=== PATIENT | male | born 1970 | race Caucasian/White ===

== ENCOUNTER 2020-10-22 11:46 | Emergency (ER) | payer OTHER ==
[2020-10-22] MEDS ORDERED: KETOROLAC 60 MG/2 ML INJ IM ONE (14:34)
[2020-10-22] MEDS ORDERED: dexAMETHasone 4 MG/ML VIAL IM STA (14:34)
--- NOTE | 2020-10-22 14:39 | Emergency Department Report ---
ED General Adult HPI - General Chief complaint: Back Pain/Injury Stated complaint: BACK PAIN,RT SHOULDER,FOOT PAIN Time Seen by Provider: 10/22/20 13:03 Source: patient, comedian (Brenda) Mode of arrival: Ambulatory Limitations: Language Barrier - History of Present Illness Initial comments: 50-year-old male patient presents with complaints of continued right- sided neck pain since a work-related injury occurring on 09/04/2020. He states he is currently following with orthopedics with the diclofenac and meloxicam they have been taking is not helping with his pain. He denies any new injuries, fever/chills/sweats, or difficulty moving his neck. He rates his current pain is 8/10 in severity. - Related Data Previous Rx's Medication Instructions Recorded Last Taken Type Acetaminophen/Codeine [Tylenol 1 tab PO Q8H PRN #6 tab 10/22/20 Unknown Rx /Codeine # 3 tab] Prednisone [predniSONE 10 mg 10 mg PO .TAPER #1 tab.ds.pk 10/22/20 Unknown Rx (6-Day Pack, 21 Tabs)] methocarbamoL [Methocarbamol] 750 - 1,500 mg PO TID PRN #30 10/22/20 Unknown Rx tablet Allergies Allergy/AdvReac Type Severity Reaction Status Date / Time No Known Allergies Allergy Unverified 10/22/20 12:10 ED Review of Systems ROS: Stated complaint: BACK PAIN,RT SHOULDER,FOOT PAIN Other details as noted in HPI Constitutional: denies: chills, fever, malaise Respiratory: denies: cough, shortness of breath Cardiovascular: denies: chest pain Neurological: denies: numbness, paresthesias ED Past Medical Hx - Past Medical History Additional medical history: BACK PAIN [employer] INJURY - Medications Home Medications: Home Medications Medication Instructions Recorded Confirmed Last Taken Type Acetaminophen/Codeine [Tylenol 1 tab PO Q8H PRN #6 tab 10/22/20 Unknown Rx /Codeine # 3 tab] Prednisone [predniSONE 10 mg 10 mg PO .TAPER #1 tab.ds.pk 10/22/20 Unknown Rx (6-Day Pack, 21 Tabs)] methocarbamoL [Methocarbamol] 750 - 1,500 mg PO TID PRN #30 10/22/20 Unknown Rx tablet ED Physical Exam - General Limitations: Language Barrier General appearance: alert, in no apparent distress - Head Head exam: Present: atraumatic, normocephalic - Eye Eye exam: Present: normal appearance - Neck Neck exam: Present: tenderness (Right trapezius muscle paraspinal muscle tenderness to palpation noted without obvious deformity), full ROM - Respiratory Respiratory exam: Absent: respiratory distress - Neurological Exam Neurological exam: Present: alert, oriented X3, normal gait. Absent: motor se nsory deficit - Psychiatric Psychiatric exam: Present: normal affect, normal mood - Skin Skin exam: Present: warm, dry, intact, normal color. Absent: rash ED Course Vital Signs 10/22/20 10/22/20 10/22/20 12:15 14:56 15:57 Temperature 98.2 F Pulse Rate 89 86 Respiratory 20 16 16 Rate Blood Pressure 188/103 Blood Pressure 168/98 [Left] O2 Sat by Pulse 94 100 Oximetry ED Medical Decision Making - Medical Decision Making 50-year-old male patient presents with complaints of continued right- sided neck pain since a work-related injury occurring on 09/04/2020. He states he is currently following with orthopedics with the diclofenac and meloxicam they have been taking is not helping with his pain. He denies any new injuries, fever/chills/sweats, or difficulty moving his neck. He rates his current pain is 8/10 in severity. Patient to discontinue meloxicam and diclofenac. He is to start naproxen and Robaxin. Recommend follow-up with orthopedics. He is well-appearing, his vitals are within normal limits, he is stable for discharge home. Discussed signs and symptoms that should prompt immediate return to the emergency department in detail patient verbalizes understanding peer Critical care attestation.: If time is entered above; I have spent that time in minutes in the direct care of this critically ill patient, excluding procedure time. ED Disposition Clinical Impression: Chronic neck pain Disposition: 01 HOME / SELF CARE / HOMELESS Is pt being admited?: No Condition: Stable Instructions: Cervical Radiculopathy Prescriptions: methocarbamoL [Methocarbamol] 750 - 1,500 mg PO TID PRN #30 tablet PRN Reason: muscle spasm/tightness Prednisone [predniSONE 10 mg (6-Day Pack, 21 Tabs)] 10 mg PO .TAPER #1 tab.ds.pk Acetaminophen/Codeine [Tylenol /Codeine # 3 tab] 1 tab PO Q8H PRN #6 tab PRN Reason: Pain , Severe (7-10) Referrals: MOLLY ELIAS MD [Staff Physician] - 3-5 Days Print Language: GERMAN
[2020-10-22 15:58] VITALS: BP 168/98
== END 2020-10-22 15:57 | disposition home or self-care (01) ==
LOC: ED 11:46
DX: G89.29 Other chronic pain (principal); M54.2 Cervicalgia; Z79.899 Other long term (current) drug therapy
CPT/HCPCS: 96372; 99282; J1100; J1885